=== PATIENT | female | born 1960 | race Caucasian/White ===

== ENCOUNTER → 2017-04-02 | Outpatient (CLI) | payer BC ==
--- NOTE | 2017-04-02 10:48 | DIAGNOSTIC IMAGING REPORT ---
LEFT KNEE 2 VIEWS HISTORY: LEFT KNEE PAIN COMPARISON: None. FINDINGS: There is no fracture or dislocation. Soft tissues are unremarkable. No radiopaque foreign bodies. No knee effusion. Cartilage spaces are maintained for age. IMPRESSION: Unremarkable left knee. Electronically signed by: Hoang Trujillo M.D. 04/02/2017 10:47 AM Dictated Date/Time: 04/02/2017 10:46 AM
== END | disposition home or self-care (01) ==
LOC: C.RAD1850 10:32
PROVIDERS: ATTEND Family Medicine
DX: M25.562 Pain in left knee (principal)